=== PATIENT | male | born 1955 | race Caucasian/White ===

== ENCOUNTER 2016-11-06 07:50 | Day surgery (SDC) | payer OTHER ==
[~2016-11-06] VITALS: Ht 170.2 cm; Wt 83.0 kg
[~2016-11-06 07:50] MED LIST: ACET-2605 PO; AZTH50T PO; CHOL200047 PO; CHOL4PAC17 PO; DIPH25CA6 PO; ESOM20CA28 PO; FOLI1TAB18 PO; L. A1CAP7 PO; METH25VI21 INJ; MULT-1018 PO; PRD2.5T PO; PRE10 PO; Sodium Chloride LOK Flush 10 mL Syringe IV PRN; TAMS0.4C29 PO; TUMERIC ROOT EXTRACT PO; UBID30CA8 PO; aller-tec PO; fentaNYL-PF 50 mCg/mL 2 mL Inj IVPUSH PRN
[2016-11-06 08:08] VITALS: BP 124/83; PULSE 76; RESP 14; O2SAT 95
[2016-11-06] MEDS: 0.9% Sodium Chloride 1,000 ML IV PRN ×2 (08:42→09:12)
[2016-11-06 09:27] VITALS: BP 116/73; PULSE 76; RESP 12; O2SAT 94
[2016-11-06 09:37] VITALS: BP 125/82; PULSE 72; RESP 14; O2SAT 94
[2016-11-06 09:48] VITALS: BP 126/72; PULSE 84; RESP 14; O2SAT 95
--- NOTE | 2016-11-06 10:00 | ENDO ---
[address] [address] ENDOSCOPY PROCEDURE PATIENT: MARGAUX KOHLI : 1955 MR#: [id number] ADMIT: 11/06/2016 JOB ID: [id number] DATE: 11/06/2016 PRIMARY PROVIDER: Lana Cadena MD PROCEDURE: Colonoscopy with biopsies. INDICATIONS: A 60-year-old male with complex complicated Crohn's, who experienced successful surgery to correct numerous enterocutaneous fistulae. He remains on azathioprine and methotrexate right now. He has five loose bowel movements per day. Pelvic pain has completely vanished. He had some inflammatory features still evident on CT. Repeat EGD is pursued to evaluate for any ongoing element of inflammation. EQUIPMENT: Adlogix-H180-AL. SEDATION: 7 mg Versed and 125 mcg fentanyl. COMPLICATIONS: None identified. BOWEL PREPARATION: Excellent. PROCEDURE INFORMATION: After the risks and benefits were explained, written and verbal informed consent was obtained. The patient was brought into the endoscopy suite and placed into the left lateral decubitus position. Sedation was achieved using the above-stated medications with the addition of oxygen via nasal cannula. Digital rectal examination was accomplished, and some moderate internal, external, nonbleeding, nonthrombosed hemorrhoids were noted. The scope was introduced into the rectum and advanced to the right hemicolectomy anastomosis. I was able to advance the scope through the anastomosis into the neoterminal ileum. The scope was then slowly withdrawn to carefully examine the mucosa for any defects or lesions. Retroflexed views were avoided in the rectum. Multiple direct views were made through the dentate line for exclusion of pathology. The colon was decompressed, the scope removed from the patient who tolerated the procedure well. FINDINGS: I did not see any evidence of proctitis. No evidence of colitis throughout. Random colon biopsies were taken for exclusion of microscopic inflammation. At the anastomosis, although it was widely patent, there was clearly some evidence of ulceration. Several punctate erosions and ulcers were noted. Multiple photographs were taken. I did not see any evidence of a fistulous tract opening. ENDOSCOPIC DIAGNOSES: 1. Mild to moderate ongoing anastomotic inflammation. 2. No evidence of colitis. 3. No proctitis. 4. Moderate internal hemorrhoids. RECOMMENDATIONS: 1. Await histopathology. 2. Continue Imuran and methotrexate. However, with liver chemistry aberrations, will need to follow this closely. 3. Short-term GI Clinic followup will be arranged to discuss further medical intervention in an attempt to eliminate the anastomotic inflammation. Will then determine the timing of any surveillance colonoscopy.
--- NOTE | 2016-11-07 10:53 | PATH ---
SURGICAL PATHOLOGY Attending Physician:Gabbie Bangura CASE STATUS: Signed Out PATIENT NAME: MARGAUX KOHLI PID: [id number] : 1955 DATE COLLECTED:11/06/2016 16:28 SPECIMEN: Colon, Biopsy CLINICAL HISTORY: CHROHN'S 1. RANDOM COLON BIOPSY FINAL DIAGNOSIS: 1.RANDOM COLON BIOPSIES: FRAGMENT OF NORMAL-APPEARING COLON MUCOSA. Negative for significant architectural distortion. Negative for significant inflammation, dysplasia and malignancy. ICD10 R19.7 GROSS DESCRIPTION: The specimen is received in one formalin filled container labeled with the patient's name, sublabeled "random colon" and consists of a 0.3 x 0.3 x 0.2 CM portion of tissue which is entirely submitted in one cassette. 11/06/2016 [facility] MICRO DESCRIPTION: See diagnosis. ICD-9 CODES: CPT CODES: 1: 09424 Electronically Signed Out Moise Woodruff MD [facility]ly [facility] Pathology [facility] [address], [place] [address] Technical component performed at [facility], [facility] [address], [address]
== END 2016-11-06 23:59 | disposition home or self-care (01) ==
LOC: END 07:50
PROVIDERS: ATTEND Internal Medicine Gastroenterology
DX: K50.019 Crohn's disease of small intestine with unspecified complications (principal); K63.89 Other specified diseases of intestine; K64.8 Other hemorrhoids; K21.9 Gastro-esophageal reflux disease without esophagitis; N40.1 Benign prostatic hyperplasia with lower urinary tract symptoms; Z87.440 Personal history of urinary (tract) infections; Z85.51 Personal history of malignant neoplasm of bladder; Z79.52 Long term (current) use of systemic steroids
CPT/HCPCS: 45380; 99153; G0500; J2250; J3010; J7030